=== PATIENT | female | born 1980 | race Hispanic/Latino ===

== ENCOUNTER 2018-04-11 14:11 | Outpatient (CLI) | payer BC ==
--- NOTE | 2018-04-11 16:16 | ULT ---
ULTRASOUND RIGHT BREAST: Indication: Evaluate area of distortion seen on mammography, and also corresponding to an area of pal pable concern noted by the patient. FINDINGS: There is a hypoechoic mass like lesion seen at 9 o'clock corresponding to the palpable area of concer n. This measures approximately 1.0 cm on ultrasound. Ultrasound core biopsy of this lesion is recomme nded. IMPRESSION: BIRADS category 4 - suspicious finding, 9 o'clock right breast. Ultrasound guided core biopsy recomme nded. POS: [place]
== END 2018-04-11 14:12 | disposition home or self-care (01) ==
LOC: BICMAMMO 14:11
PROVIDERS: ATTEND Physician Assistant
DX: N63.13 Unspecified lump in the right breast, lower outer quadrant (principal); Z80.3 Family history of malignant neoplasm of breast
CPT/HCPCS: 77066; G0279

== ENCOUNTER → 2018-04-13 | Day surgery (SDC) | payer BC ==
--- NOTE | 2018-04-13 15:44 | ULT ---
ULTRASOUND GUIDED RIGHT BREAST BIOPSY: 04/13/18 PROVIDED CLINICAL HISTORY: Right breast mass. FINDINGS: Correlation is made with the diagnostic ultrasound of 04/11/18 and diagnostic mammogram of 04/11/18. Informed consent was obtained from the patient. The previously described 9 o'clock breast mass was lo calized sonographically. Additional somewhat vague areas of diminished echogenicity are seen in this location somewhat deeper and in close proximity to his mass. These were not definitely visualized on the comparison diagnostic exam and may be artifactual. The skin overlying the 9 o'clock breast mass w as prepped and draped in the usual sterile manner. The soft tissues were infiltrated with 1% buffered lidocaine. A small skin incision was made. Under continuous sonographic guidance, a core biopsy norm ce was advanced adjacent to the lesion and five core samples obtained. Subsequently, continuous sonog raphic guidance was utilized to deploy a biopsy clip adjacent to the sonographically apparent mass. P ost clip placement mammograms demonstrate the clip to be somewhat anterior to the largest mammographi c abnormality. The needle was withdrawn and hemostasis achieved. Note: No immediate complications. It is uncertain whether this reflects clip migration or whether the sonographic abnormality is a smaller portion of the larger mammographic process. IMPRESSION: 1. Technically successful ultrasound guided right 9 o'clock breast mass biopsy. 2. As discussed above, the clip on post-biopsy mammogram is somewhat anterior to the predominant mammographic abnormality. This may reflect clip migration or the biopsied mass may reflect a small portion of an overall larger mass more posteriorly seen better mammographically. Consider further poornima luation with breast MRI in the setting of malignant histology results. POS: OFF
== END ==
LOC: BICULT 12:42
PROVIDERS: ATTEND Physician Assistant
PROC: 0HBT3ZX Excision of Right Breast, Percutaneous Approach, Diagnostic (ICD-10-PCS; principal; 2018-04-13)
DX: N61.0 Mastitis without abscess (principal); N63.10 Unspecified lump in the right breast, unspecified quadrant; Z79.899 Other long term (current) drug therapy
CPT/HCPCS: 19083; 88305; 88312; 88341; 88342

== ENCOUNTER 2018-05-04 11:00 | Emergency (ER) | payer BC ==
[2018-05-04 11:35] LABS: #Eosinphils 0.1 thou/uL (0.0-0.7); #Lymphocytes 1.9 thou/uL (1.20-3.40); #Monocytes 0.6 thou/uL (0.11-0.59); #Neutrophils 8.9 thou/uL (1.40-6.50); %Basophils 0.3 % (0.0-1.0); %Lymphocytes 16.3 % (21.0-51.0); %Neutrophils 77.5 % (42.0-75.0); Hemoglobin 13.2 g/dL (12.0-16.0); Mean Corpuscular HGB CONC 34.3 g/dL (32.0-36.0); Mean Corpuscular Hemoglobin 32.1 pg (27.0-31.0); Mean Corpuscular Volume 93.7 fL (78.0-98.0); Mean Platelet Volume 8.2 fL (7.4-10.4); Platelet Count 333 thou/uL (130-400); RBC Distribution Width 11.4 % (11.5-14.5); Red Blood Cell (RBC) Count 4.11 mill/uL (4.20-5.40); White Blood Cell (WBC) Count 11.5 thou/uL (4.8-10.8)
[2018-05-04 12:01] LABS: ALT (SGPT) 18 U/L (8-55); AST (SGOT) 17 U/L (5-34); Albumin 4.1 g/dL (3.5-5.0); Alkaline Phosphatase 67 U/L (40-150); Anion Gap 12 mmol/L (10-20); BUN (Urea Nitrogen) 10 mg/dL (7.0-18.7); Calc. Creatinine Clearance 0 mL/min (70-130); Calcium 9.2 mg/dL (7.8-10.44); Carbon Dioxide 21 mmol/L (22-29); Chloride 105 mmol/L (98-107); Estimated GFR-MDRD Greater than 90; Globulin 3.5 g/dL (2.4-3.5); Glucose 120 mg/dL (70-105); Potassium 3.7 mmol/L (3.5-5.1); Protein, Total 7.6 g/dL (6.0-8.3); Sodium 134 mmol/L (136-145)
--- NOTE | 2018-05-04 12:25 | ULT ---
RIGHT BREAST ULTRASOUND: Date: 05/04/18 HISTORY: Swelling and redness. No history of nipple discharge. COMPARISON: Breast biopsy which was performed 04/13/18. The breast biopsy was listed as being at the 9 o'clock po sition, which is a similar location to this area. FINDINGS: Real-time imaging of the area of concern shows an ill-defined hypoechoic area at the 9 o'clock positi on, 1-2 cm from the nipple. This extends towards the nipple and is not a defined fluid collection. It could possibly be a complex collection. Most of this hypoechoic area shows some internal flow by col or Doppler. IMPRESSION: Ill-defined hypoechoic area at the 9 o'clock position of the right breast, which is not a definite de fined abscess collection. It could possibly have some complex fluid, but after discussion with the te chnologist, the majority of this shows some internal flow, and is therefore a nonspecific and more po ssibly an inflammatory process without a definite abscess formation at this time. This does appear to be in the proximity of the previous breast biopsy. POS: VIN
== END 2018-05-04 12:52 | disposition home or self-care (01) ==
LOC: ERS 11:00
DX: N61.0 Mastitis without abscess (principal)
CPT/HCPCS: 36415; 80053; 85025

== ENCOUNTER 2018-06-04 12:17 | Outpatient (CLI) | payer BC | END 2018-06-04 12:18 | disposition home or self-care (01) | LOC: BICMAMMO 12:17 | PROVIDERS: ATTEND Surgery | DX: N63.10 Unspecified lump in the right breast, unspecified quadrant (principal) | CPT/HCPCS: G0279 ==

== ENCOUNTER 2018-07-05 01:57 | Emergency (ER) | payer BC ==
[2018-07-05] MEDS ORDERED: Ondansetron PF 4 MG/2 ML Vial ONE (02:42)
[2018-07-05] MEDS ORDERED: Morphine 4 MG/ML VIAL ONE (02:42)
[2018-07-05 02:44] LABS: #Basophils 0.1 thou/uL (0.0-0.2); #Eosinphils 0.3 thou/uL (0.0-0.7); #Lymphocytes 2.3 thou/uL (1.20-3.40); #Monocytes 0.6 thou/uL (0.11-0.59); #Neutrophils 9.8 thou/uL (1.40-6.50); %Basophils 0.4 % (0.0-1.0); %Lymphocytes 17.7 % (21.0-51.0); %Monocytes 4.9 % (0.0-10.0); Hemoglobin 13.8 g/dL (12.0-16.0); Mean Corpuscular HGB CONC 33.4 g/dL (32.0-36.0); Mean Corpuscular Hemoglobin 31.6 pg (27.0-31.0); Mean Corpuscular Volume 94.8 fL (78.0-98.0); Mean Platelet Volume 8.7 fL (7.4-10.4); Platelet Count 339 thou/uL (130-400); RBC Distribution Width 11.3 % (11.5-14.5); Red Blood Cell (RBC) Count 4.36 mill/uL (4.20-5.40); White Blood Cell (WBC) Count 13.1 thou/uL (4.8-10.8)
[2018-07-05 03:52] LABS: ALT (SGPT) 22 U/L (8-55); AST (SGOT) 21 U/L (5-34); Albumin 4.8 g/dL (3.5-5.0); Alkaline Phosphatase 72 U/L (40-150); Anion Gap 13 mmol/L (10-20); BUN (Urea Nitrogen) 14 mg/dL (7.0-18.7); Bilirubin, Total 0.8 mg/dL (0.2-1.2); Calc. Creatinine Clearance 0 mL/min (70-130); Carbon Dioxide 23 mmol/L (22-29); Chloride 106 mmol/L (98-107); Estimated GFR-MDRD Greater than 90; Globulin 3.6 g/dL (2.4-3.5); Glucose 109 mg/dL (70-105); Lipase 31 U/L (8-78); Potassium 3.7 mmol/L (3.5-5.1); Protein, Total 8.4 g/dL (6.0-8.3); Sodium 138 mmol/L (136-145)
[2018-07-05 04:06] LABS: Bilirubin Negative (Negative); Blood, Urine Negative (Negative); Clarity CLEAR (Clear); Glucose, Urine (Dipstick) Negative (Negative); Leukocyte Negative (Negative); Nitrite Negative (Negative); Protein, Urine (Dipstick) Negative (Neg-Trace); Specific Gravity, Urine 1.026 (1.002-1.036); Urobilinogen 0.2 mg/dL (0.2-1.0)
[2018-07-05 04:14] LABS: Pregnancy Test - Urine (BHCG) Negative (Negative); Pregu Control Background? CLEAR/WHITE (CLR/WHITE); Pregu Control Bar Appear? YES (CONTROL BAR); Specific Gravity 1.026 (1.002-1.036)
[2018-07-05] MEDS ORDERED: Lidocaine Viscous Sol 2% 15 ml UD Cup ONE (04:41)
[2018-07-05] MEDS ORDERED: Mag-Al 1200 mg/1200 mg/30 ML UDCUP ONE (04:41)
[2018-07-05] MEDS ORDERED: Ketorolac Tromethamine 30 MG/ML VIAL ONE (05:30)
--- NOTE | 2018-07-05 09:14 | ULT ---
PRELIMINARY REPORT/[facility]/EMERGENTY AFTER-HOURS PROCEDURE US Abdomen Limited, Right Upper Quadrant EXAM DATE/TIME: 07/05/2018 2:59 AM CLINICAL HISTORY: 38 years old, female; Pain; Abdominal pain; Other: Epigastric radiating to back; Patient HX: Sharp/bu rning epigastric pain TECHNIQUE: Real-time ultrasound of the abdomen with image documentation. Examination was focused on the right up per quadrant. COMPARISON: No relevant prior studies available. FINDINGS: Liver: Mildly enlarged and echogenic/fatty liver. No acute findings. No mass. Gallbladder: Distended. Multiple small gallstones and sludge. No significant gallbladder wall thicken ing or pericholecystic fluid. Negative [place] sign. Common bile duct: Unremarkable. Measures 0.5 cm in diameter. Pancreas: Limited visualization due to bowel gas. Visualized pancreas is unremarkable. Right kidney: No acute findings. No mass. No hydronephrosis. IMPRESSION: Cholelithiasis. Thank you for allowing us to participate in the care of your patient. Dictated and Authenticated by: Dex Taylor MD 07/05/2018 5:19 AM Central Time ([place] & [place]) FINAL REPORT EMERGENCY AFTER HOURS RIGHT UPPER QUADRANT ABDOMINAL ULTRASOUND: Date: 07/05/18 FINDINGS/IMPRESSION: I agree with the findings and impression given in the preliminary report per [facility] physician. Cholelit hiasis. POS: VIN
--- NOTE | 2018-07-07 19:51 | EKG ---
Test Reason : EPIGASTRICPAIN Blood Pressure : / mmHG Vent. Rate : 070 BPM Atrial Rate : 070 BPM P-R Int : 150 ms QRS Dur : 096 ms QT Int : 378 ms P-R-T Axes : 019 007 029 degrees QTc Int : 408 ms Normal sinus rhythm Normal ECG Confirmed by GABE VALLEJO DO ([id number]), mapping editor SWETA VANCE ([id number]) on 07/07/2018 7:51:01 PM Referred By: YONI Confirmed By:GABE VALLEJO DO
== END 2018-07-05 05:45 | disposition home or self-care (01) ==
LOC: ERS 01:57
DX: K80.20 Calculus of gallbladder without cholecystitis without obstruction (principal)
CPT/HCPCS: 76705; 80053; 81003; 81025; 83690; 85025; 93005; 96374; 96375; J1885; J2270; J2405

== ENCOUNTER 2021-04-30 01:51 | Emergency (ER) | payer BC, OTHER ==
[2021-04-30] MEDS ORDERED: Ondansetron PF 4 MG/2 ML Vial ONE (02:25)
[2021-04-30] MEDS ORDERED: Ketorolac Tromethamine 30 MG/ML VIAL ONE (02:27)
[2021-04-30 02:37] LABS: #Basophils 0.1 thou/uL (0.0-0.2); #Eosinphils 0.2 thou/uL (0.0-0.7); #Lymphocytes 2.9 thou/uL (1.20-3.40); #Monocytes 0.6 thou/uL (0.11-0.59); #Neutrophils 8.5 thou/uL (1.40-6.50); %Basophils 0.9 % (0.0-1.0); %Eosinophils 1.3 % (0.0-10.0); %Lymphocytes 23.6 % (21.0-51.0); %Neutrophils 69.2 % (42.0-75.0); Mean Corpuscular HGB CONC 35.8 g/dL (32.0-36.0); Mean Corpuscular Hemoglobin 33.7 pg (27.0-31.0); Mean Platelet Volume 7.8 fL (7.4-10.4); Platelet Count 333 thou/uL (130-400); RBC Distribution Width 11.3 % (11.5-14.5); Red Blood Cell (RBC) Count 4.14 mill/uL (4.20-5.40); White Blood Cell (WBC) Count 12.2 thou/uL (4.8-10.8)
[2021-04-30 02:54] LABS: ALT (SGPT) 55 U/L (8-55); AST (SGOT) 32 U/L (5-34); Albumin 4.3 g/dL (3.5-5.0); Alkaline Phosphatase 68 U/L (40-110); Anion Gap 15 mmol/L (10-20); BUN (Urea Nitrogen) 21 mg/dL (7.0-18.7); Bilirubin, Total 1.1 mg/dL (0.2-1.2); Calc. Creatinine Clearance 0 mL/min (70-130); Calcium 9.5 mg/dL (7.8-10.44); Carbon Dioxide 26 mmol/L (22-29); Chloride 103 mmol/L (98-107); Globulin 3.3 g/dL (2.4-3.5); Glucose 130 mg/dL (70-105); Lipase 27 U/L (8-78); Potassium 4.2 mmol/L (3.5-5.1); Protein, Total 7.6 g/dL (6.0-8.3); Sodium 140 mmol/L (136-145)
[2021-04-30] MEDS ORDERED: Morphine 4 MG/ML VIAL ONE (03:05)
[2021-04-30 03:29] LABS: Bilirubin Negative (Negative); Blood, Urine Negative (Negative); Clarity Clear (Clear); Glucose, Urine (Dipstick) Normal (Negative); Ketone, Urine Negative (Negative); Leukocyte Negative Leu/uL (Negative); Nitrite Negative (Negative); Protein, Urine (Dipstick) 10 mg/dL (Neg-Trace); Specific Gravity, Urine 1.032 (1.002-1.036); Urobilinogen Normal mg/dL (Less than 2); pH, Urine 6.5 (5.0-9.0)
== END 2021-04-30 08:10 | disposition home or self-care (01) ==
LOC: ERS 01:51
DX: K80.20 Calculus of gallbladder without cholecystitis without obstruction (principal)
CPT/HCPCS: 71045; 76705; 80053; 81003; 83690; 84484; 84702; 85025; 93005; 96374; 96375; J1885; J2270; J2405